=== PATIENT | male | born 1970 | race Caucasian/White ===

== ENCOUNTER → 2019-02-06 | Outpatient (REF) | payer BC ==
[2019-02-06 18:35] LABS: PLATELET COUNT, AUTOMATED 301 K/uL (150-450)
== END ==
PROVIDERS: ATTEND Nurse Practitioner Family
DX: R07.9 Chest pain, unspecified (principal); I10 Essential (primary) hypertension; Z82.49 Family history of ischemic heart disease and other diseases of the circulatory system
CPT/HCPCS: 82040; 82247; 82310; 82374; 82435; 82565; 82947; 84075; 84132; 84155; 84295; 84450; 84460; 84484; 84520; 85025; 85379